=== PATIENT | female | born 1995 | race Caucasian/White ===

== ENCOUNTER 2017-11-26 20:12 | Emergency (ER) | payer MEDICAID ==
[~2017-11-26] VITALS: Ht 177.8 cm; Wt 103.1 kg
[2017-11-26 20:15] VITALS: BP 147/95
== END 2017-11-26 20:52 | disposition home or self-care (01) ==
LOC: ED 20:25
DX: L02.31 Cutaneous abscess of buttock (principal)
CPT/HCPCS: 99283